=== PATIENT | female | born 1960 | race Caucasian/White ===

== ENCOUNTER 2018-08-25 11:41 | Emergency (ER) | payer OTHER ==
[~2018-08-25] VITALS: Ht 154.9 cm; Wt 57.7 kg
[2018-08-25] MEDS ORDERED: COLA100C5 PO (12:10)
[2018-08-25] MEDS ORDERED: ECOT81TA5 PO (12:10)
[2018-08-25] MEDS ORDERED: VITA-122 PO (12:10)
[2018-08-25] MEDS ORDERED: PRED20TA (12:10)
[2018-08-25] MEDS ORDERED: HYDR12CA (12:10)
[2018-08-25] MEDS ORDERED: HYDR-3713 (12:10)
[2018-08-25] MEDS ORDERED: SIMV10TA2 (12:10)
[2018-08-25] MEDS ORDERED: PYRI25TA2 PO (12:10)
[2018-08-25] MEDS ORDERED: B121000T PO (12:10)
[2018-08-25] MEDS ORDERED: MAGN250T9 PO (12:10)
[2018-08-25] MEDS ORDERED: POTA20TA6 (12:10)
[2018-08-25] MEDS ORDERED: ALLE180T33 PO (12:10)
[2018-08-25] MEDS ORDERED: BIOT2500 PO (12:10)
[2018-08-25] MEDS ORDERED: LORazepam 2 MG/ML VIAL (J2060) IV STA (12:26)
[2018-08-25] MEDS ORDERED: GABAPENTIN 300 MG CAP PO ONE (12:30)
[2018-08-25] MEDS ORDERED: MORPHINE 4 MG/ML 1ML VIAL/SYRINGE (J2270) IV ONE (12:30)
[2018-08-25 12:40] LABS: BASO % 0.4 % (0.0-1.0); EOS % 0.3 % (0.0-3.0); HEMATOCRIT 42.3 % (36.0-47.0); HEMOGLOBIN 14.6 g/dl (12.0-15.5); LYMPH # 1.1 10^3/uL (1.5-4.5); LYMPH % 13.3 % (24.0-44.0); MEAN CORPUSCULAR HEMOGLOBIN 31.3 pg (27.0-33.0); MEAN CORPUSCULAR HGB CONC 34.5 g/dl (32.0-36.5); MEAN CORPUSCULAR VOLUME 90.6 fl (80.0-96.0); MONO # 0.6 10^3/uL (0.0-0.8); MONO % 7.8 % (0.0-5.0); NEUTROPHILS # 6.2 10^3/uL (1.8-7.7); NEUTROPHILS % 77.8 % (36.0-66.0); PLATELET COUNT, AUTOMATED 246 10^3/uL (150-450); RED BLOOD COUNT 4.67 10^6/uL (4.00-5.40)
[2018-08-25] MEDS ORDERED: ONDANSETRON 4MG/2ML VIAL (J2405) IV ONE (13:00)
[2018-08-25] MEDS ORDERED: PERCOCET 5MG/325MG TAB PO ONE (13:00)
[2018-08-25] MEDS ORDERED: oxyCODONE 5MG TAB PO ONE (13:00)
[2018-08-25 13:02] LABS: ERYTHROCYTE SEDIMENTATION RATE 5 mm/hr (0-30)
[2018-08-25 13:05] LABS: BLOOD UREA NITROGEN 15 MG/DL (7-18); C REACTIVE PROTEIN QUANTITATIV < 0.30 MG/DL (0.00-0.30); CALCIUM LEVEL 9.1 MG/DL (8.5-10.1); CARBON DIOXIDE LEVEL 27 MEQ/L (21-32); CHLORIDE LEVEL 103 MEQ/L (98-107); CREATININE FOR GFR 0.61 MG/DL (0.55-1.30); GLOMERULAR FILTRATION RATE > 60.0 (>51); GLUCOSE, FASTING 98 MG/DL (70-100); POTASSIUM SERUM 3.8 MEQ/L (3.5-5.1); SODIUM LEVEL 139 MEQ/L (136-145)
--- NOTE | 2018-08-25 15:02 | REP ---
Emergency lumbar spine MRI study without contrast: History: Severe left lower back pain and left leg numbness. No comparison lumbar imaging. Technique: Sagittal and axial T1 and T2-weighted scans are acquired in the usual fashion with and without fat saturation. Sequences include spin echo, turbo spin-echo, and STIR imaging sequences. MRI findings: There is straightening of the normal lumbar lordosis. Lumbar vertebral body heights are preserved. Alignment is normal. There is no evidence of spondylolysis or spondylolisthesis. Conus medullaris is normal in position and appearance at the L1-2 disc level. No extra spinal abnormality is observed. Axial and sagittal images at the L1-2 and L2-3 disc show no abnormality. At L3-4, there is some decreased disc space height and signal intensity indicating degenerative disc disease. There is a fairly large left foraminal and left lateral disc protrusion. This produces left lateral neural foraminal impingement and displaces the adjacent extradural root. There is minimal ligamentum flavum hypertrophy. No central canal stenosis is seen. At the L4-5 level, there is degenerative narrowing of the disc. There is also a small left lateral disc protrusion at L4-5. In addition to the lateral disc extrusion, there is a left posterior and left foraminal disc herniation which is fairly large and compresses the left ventral margin of the thecal sac and the exiting left fifth root. This disc protrusion measures 11 mm in medial to lateral span by 5 mm in anteroposterior dimension by 12 mm in craniocaudal dimension. The disc is extruded cranially. There is mild facet hypertrophy bilaterally L4-5. At L5-S1, there is facet hypertrophy bilaterally. Minimal posterior disc bulging is seen diffusely. There is minimal neural foraminal narrowing on the right due to disc bulging. Impression: 1. Large left posterior disc protrusion at L4-5, with cranially extruded fragment producing thecal sac and left L5 root compression. 2. Small left lateral disc protrusion at L4-5.3. 3. Large left lateral disc protrusion at L3-4. Electronically Signed by Jony Muir MD 08/25/2018 03:54 P
[2018-08-25] MEDS ORDERED: GABA-843 PO (15:19)
[2018-08-25 15:30] VITALS: BP 137/84
--- NOTE | 2018-08-26 12:48 | ED PDOC ---
Post-Departure Follow-Up dr chambers and dr arboleda faxed formal report of mri ls spine for fu David Hinojosa MD Aug 26, 2018 12:48
== END 2018-08-25 15:34 | disposition home or self-care (01) ==
LOC: M ED 11:41
DX: M54.16 Radiculopathy, lumbar region (principal); M51.26 Other intervertebral disc displacement, lumbar region; I10 Essential (primary) hypertension; M54.30 Sciatica, unspecified side; Z79.899 Other long term (current) drug therapy; Z79.82 Long term (current) use of aspirin; Z88.0 Allergy status to penicillin; Z88.1 Allergy status to other antibiotic agents; Z88.2 Allergy status to sulfonamides; Z91.041 Radiographic dye allergy status
CPT/HCPCS: 72148; 80048; 85025; 85652; 86140; 94760; 96374; 96375; 99284; J2060; J2270; J2405

== ENCOUNTER 2018-08-27 14:29 | Day surgery (SDC) | payer OTHER ==
[~2018-08-27] VITALS: Ht 154.9 cm; Wt 55.3 kg
[~2018-08-27 14:29] MED LIST: ALLE180T33 PO; B121000T PO; BACITRACIN PWD 50,000 UNITS VIAL As Ordered ONE; BIOT2500 PO; BUPIVACAINE HCL 0.25% 10 ML VIAL As Ordered ONE; BUPIVACAINE LIPOSOME/PF 1.3% 20ML VIAL (13.3MG/ML)(EXPAREL)(C9290 PER1MG) As Ordered ONE; COLA100C5 PO; ECOT81TA5 PO; GABA-843 PO; HYDR-3713; HYDR12CA; MAGN250T9 PO; POTA20TA6; PRED20TA; PYRI25TA2 PO; SIMV10TA2; THROMBIN SOLN 20,000 UNITS KIT As Ordered ONE; VITA-122 PO
[2018-08-27] MEDS ORDERED: ONDANSETRON 4MG/2ML VIAL (J2405) As Ordered ONE (14:43)
[2018-08-27] MEDS ORDERED: KETAMINE HCL 200 MG/20 ML VIAL As Ordered ONE (14:43)
[2018-08-27] MEDS ORDERED: fentaNYL 250 MCG/5 ML INJECTION (J3010) As Ordered ONE (14:43)
[2018-08-27] MEDS ORDERED: PROPOFOL 200 MG/20 ML VIAL As Ordered ONE (14:43)
[2018-08-27] MEDS ORDERED: ROCURONIUM BROMIDE 50 MG/5 ML VIAL As Ordered ONE (14:43)
[2018-08-27] MEDS ORDERED: MIDAZOLAM INJ 2 MG/2 ML VIAL (J2250) As Ordered ONE (14:43)
[2018-08-27] MEDS ORDERED: LIDOCAINE 2% INJ 100 MG/5 ML SDV (FOR ANES.) As Ordered ONE (14:43)
[2018-08-27] MEDS ORDERED: ceFAZolin SOD 1 GM in D5W MINI-BAG PLUS 50 ML IV ONE (15:15)
[2018-08-27] MEDS ORDERED: LR 1,000 ML IV SCH ×2 (15:15→20:00)
[2018-08-27] MEDS ORDERED: PERCOCET 5MG/325MG TAB PO ONE (15:30)
[2018-08-27] MEDS ORDERED: GABAPENTIN 300 MG CAP PO ONE (15:30)
[2018-08-27] MEDS ORDERED: EPINEPHrine INJ 1 MG/ML 1ML AMP As Ordered ONE (16:20)
[2018-08-27] MEDS ORDERED: BUPIVACAINE/EPIN 0.5% 30 ML VIAL As Ordered ONE (16:20)
[2018-08-27] MEDS ORDERED: TRANEXAMIC ACID 100 MG/ML 10ML VIAL As Ordered ONE (16:20)
[2018-08-27] MEDS ORDERED: SCOPOLAMINE 1MG TRANSDERMAL PATCH As Ordered ONE (17:50)
[2018-08-27] MEDS ORDERED: dexameTHASONE 4 MG/ML 1ML VIAL (J1100) As Ordered ONE (18:29)
[2018-08-27] MEDS ORDERED: ePHEDrine SULFATE 25 MG/5 ML(5MG/ML) SYRINGE As Ordered ONE (18:52)
[2018-08-27] MEDS ORDERED: GLYCOPYRROLATE INJ 0.2 MG/ML 2 ML VIAL As Ordered ONE (19:28)
[2018-08-27] MEDS ORDERED: NEOSTIGMINE 10 MG/10 ML VIAL (J2710) As Ordered ONE (19:28)
[2018-08-27] MEDS ORDERED: ONDANSETRON 4MG/2ML VIAL (J2405) IV PRN (20:00)
[2018-08-27] MEDS ORDERED: METOCLOPRAMIDE INJ 10MG/2ML VIAL (J2765) IV PRN (20:00)
[2018-08-27] MEDS ORDERED: PERCOCET 5MG/325MG TAB PO PRN ×3 (20:00→20:15)
[2018-08-27] MEDS ORDERED: MEPERIDINE INJ 25 MG/ML VIAL (J2175) IV PRN (20:00)
[2018-08-27] MEDS ORDERED: fentaNYL 100 MCG/2 ML INJECTION (J3010) IV PRN (20:00)
[2018-08-27] MEDS ORDERED: SCOPOLAMINE 1MG TRANSDERMAL PATCH TOP SCH (20:15)
[2018-08-27] MEDS ORDERED: PROMETHAZINE 25 MG TAB PO PRN (20:15)
[2018-08-27] MEDS ORDERED: NORTRIPTYLINE 10 MG CAP PO PRN (20:15)
[2018-08-27] MEDS ORDERED: PILL CRUSHER/CUTTER 1 EACH XX PRN (20:15)
[2018-08-27 20:55] VITALS: BP 131/82
[2018-08-27] MEDS: GABAPENTIN 300 MG CAP PO SCH (21:20)
[2018-08-27] MEDS: D5W/LR 1,000 ML IV SCH (21:20)
[2018-08-27 21:25] VITALS: BP 138/82
[2018-08-27 22:00] VITALS: BP 134/86
[2018-08-27] MEDS ORDERED: HYDROmorphone HCL 2 MG/ML 1ML VIAL (J1170) IV PRN (22:00)
[2018-08-27 23:00] VITALS: BP 131/86
[2018-08-28] VITALS: BP 135/85
[2018-08-28] MEDS ORDERED: ceFAZolin SOD 1 GM in D5W MINI-BAG PLUS 50 ML IV SCH ×2
[2018-08-28 01:00] VITALS: BP 124/58
[2018-08-28 02:00] VITALS: BP 134/82
[2018-08-28 06:00] VITALS: BP 118/67
--- NOTE | 2018-08-28 06:06 | REP ---
CROSS-TABLE LUMBAR SPINE: 08/27/2018. Clinical history: Back injury. Findings: Single view with cross-table lateral projection intraoperative shows a probe at the level of the inferior articulating facet of L5. Wet reading was provided at the time of the exam for the OR. Electronically Signed by Silvestre Castelan MD 08/28/2018 08:54 A
[2018-08-28] MEDS: D5W/LR 1,000 ML IV SCH (06:15)
[2018-08-28] MEDS ORDERED: PERC5TAB12 PO (06:34)
[2018-08-28] MEDS: GABAPENTIN 300 MG CAP PO SCH (08:45)
[2018-08-28] MEDS ORDERED: POTASSIUM CHLORIDE 10 MEQ SR TABLET PO SCH (09:00)
[2018-08-28] MEDS ORDERED: ASPIRIN 81 MG ENTERIC TAB PO SCH (09:00)
[2018-08-28] MEDS ORDERED: hydroCHLOROthiazide 12.5 MG CAPSULE PO SCH (09:00)
[2018-08-28] MEDS ORDERED: METAMUCIL (PSYLLIUM) PACKET PO SCH (09:00)
--- NOTE | 2018-08-29 12:24 | RO ---
DATE OF PROCEDURE: 08/27/2018 PREOPERATIVE DIAGNOSIS: Left lower extremity radiculopathy secondary to disc extrusion L4-5 with superior migration. POSTOPERATIVE DIAGNOSIS: Left lower extremity radiculopathy secondary to disc extrusion L4-5 with superior migration. PROCEDURE PERFORMED: Left L4-5 microdiscectomy. SURGEON: Singh Painting MD ASSISTING: Jose G Lackey, physician botany laboratory assistant. ANESTHESIA: General. ESTIMATED BLOOD LOSS: Less than 30 mL, replaced with crystalloid. No complication. INDICATIONS: Left lower extremity radicular discomfort and weakness, intractable, going on for more than 1 week time. MRI evidence of large disc herniation with superior migration at L4-5 on the left side as well as some far lateral disc bulging. Patient has elected for operative intervention. CONSENT: Reviewed in detail with patient including beto discussion of the pathology involved, the procedure proposed, alternatives, including doing nothing, risks, including not limited to, pain, failure, infection, bleeding, blood loss, paralysis, nerve injury, need for more surgery, and other issues. Also talked about the potential need for fusion surgery if the far lateral disc also contributes symptoms. I did explain that we are addressing the extruded component which seemed to be having a larger mass affect. The patient agrees to proceed. DESCRIPTION OF PROCEDURE: Operative course: Identified in the holding area, site side verified, brought to the operating room. Once anesthesia was administered, Mr. Lackey and myself positioned the patient in the prone position on the Prince frame for exposure of the lumbar spine. Once I and the banquet stewardess were comfortable with the patient's positioning, she was sterilely prepped and draped in the usual fashion for exposure. Next, the incision was outlined with a marking pen. Length of the incision was about 1.5 cm, infiltrated with 0.25% Marcaine with epinephrine. It was based on palpation of the iliac crest and spinous processes. Next, the incision was made with a 10 blade knife, developed down through skin and subcuticular tissues. For this portion of procedure, I utilized loupe magnification and a headlamp. Dissection continued down to the L4-5 interspace, identified the posterior lamina of L5. I drilled the divot in the posterior lamina of L5 with the high-speed bur and placed a Burks Christiano in the divot. We now obtained a cross-table lateral x-ray to verify our level. Next, with this accomplished, we continued the dissection further exposing the L4-5 level over the lamina of 4 and facet complex of 4-5. Next, because of the patient's small stature and the small incision, I did utilize the cervical Versatrac retractor for this lumbar case, size 40 mm thin blade. Next, at this stage, the operating microscope was draped and brought in for the remainder of the procedure, my loupes were removed, headlamp removed. Next, this facilitated safe use of the high-speed bur. Mr. Lackey looked through oculars on the right side of the scope, I through oculars on the left side of the scope. I utilized the high-speed bur to implement the left unilateral laminotomy at the L4 level extending superiorly to the bare area of L4 and then inferiorly into the lamina of L5 to the bare area of 5. The medial aspect of the facet was preserved. We removed probably 4 mm of the medial aspect of thel L4-5 facet in the process of this dissection. Next, ligamentum flavum was elevated with curved curettes and removed ligamentum flavum using #2 Kerrison. Next, this exposed the thecal sac. Next, the superior aspect of the dissection, we utilized a Burks Christiano and Mr. Lackey utilized suction Edin retractor to retract the thecal sac, and I appreciated the superiorly migrated disc fragment. I utilized a Burks Christiano to tease it from under the posterior longitudinal ligament and the Cason pituitary to remove it from the posterior longitudinal ligament. The fragment up was nearly 1 cm x 1 cm x 1 cm in dimension, clinically intraoperatively. Next, is quite significantly decompressed the thecal sac. I did probe the neural foramina and I found no impingement in neural foramina or in probing with Burks Christiano probe. Next, bipolar cautery was visualized for hemostasis as well as thrombin Gelfoam. All thrombin Gelfoam was removed at the conclusion of case. We appreciated no active bleeding and no cerebrospinal fluid (CSF) leak. Next, I did inject Exparel solution, approximately 40 mL, for postoperative local anesthetic into the subcuticular tissues and fascial tissues. Next, once all retractors were removed, we reapproximated the lumbar fascia with interrupted stitch, deep dermis with interrupted stitch. Prineo dressing utilized on skin. Patient was log rolled to hospital bed, extubated, moved to recovery room in good condition. For further details, please refer to the medical record.
== END 2018-08-28 09:35 | disposition home or self-care (01) ==
LOC: M SDC 14:29 → M MS5PR 20:45 → M SDC 08-28 09:35
PROVIDERS: ATTEND Orthopaedic Surgery
DX: M51.16 Intervertebral disc disorders with radiculopathy, lumbar region (principal); M51.26 Other intervertebral disc displacement, lumbar region; I10 Essential (primary) hypertension; Z79.82 Long term (current) use of aspirin; Z79.899 Other long term (current) drug therapy; Z88.0 Allergy status to penicillin; Z88.2 Allergy status to sulfonamides; Z91.041 Radiographic dye allergy status
CPT/HCPCS: 36415; 63030; 72110; 86850; 86900; 86901; 88304; 96374; 96375; C9290; J0690; J1100; J1170; J2250; J2405; J2710; J3010

== ENCOUNTER 2019-07-06 09:51 | Emergency (ER) | payer OTHER ==
[~2019-07-06] VITALS: Ht 154.9 cm; Wt 57.3 kg
[~2019-07-06 09:51] MED LIST changes: -BACITRACIN PWD 50,000 UNITS VIAL As Ordered ONE; -BUPIVACAINE HCL 0.25% 10 ML VIAL As Ordered ONE; -BUPIVACAINE LIPOSOME/PF 1.3% 20ML VIAL (13.3MG/ML)(EXPAREL)(C9290 PER1MG) As Ordered ONE; +PERC5TAB12 PO; -SIMV10TA2; +SIMV10TA21; -THROMBIN SOLN 20,000 UNITS KIT As Ordered ONE
--- NOTE | 2019-07-06 10:48 | REP ---
REASON: Pain, no trauma. NO PRIORS. FINDINGS: No acute fracture or destructive osseous lesion. Electronically Signed by Chuck Alva DO 07/06/2019 11:43 A
--- NOTE | 2019-07-06 10:50 | REP ---
REASON: Pain. No trauma. AP PELVIS AND TWO VIEWS OF THE LEFT HIP: A single AP view of the pelvis was performed. The hip joint spaces are symmetric and relatively well maintained. There is no acute fracture or destructive osseous lesion. LEFT HIP: The hip joint space is symmetric and relatively well maintained. There is no acute or destructive osseous lesion. Electronically Signed by Chuck Alva DO 07/06/2019 11:43 A
[2019-07-06] MEDS ORDERED: IBUPROFEN 600 MG TAB PO ONE (14:00)
[2019-07-06] MEDS ORDERED: ACETAMINOPHEN 500 MG TAB PO ONE (14:00)
[2019-07-06] MEDS ORDERED: NAPR220C14 PO (14:29)
[2019-07-06] MEDS ORDERED: LISI-1046 PO (14:29)
--- NOTE | 2019-07-06 14:36 | REP ---
Reason for the left hip is felt a pop. The hip is normal. There is no evidence of a mass or significant joint effusion. IMPRESSION: Normal hip CT. Electronically Signed by Chuck Alva DO 07/06/2019 03:09 P
[2019-07-06 14:39] LABS: BASO % 0.4 % (0.0-1.0); EOS # 0.1 10^3/uL (0.0-0.5); EOS % 1.3 % (0.0-3.0); HEMATOCRIT 40.5 % (36.0-47.0); HEMOGLOBIN 13.4 g/dl (12.0-15.5); LYMPH % 20.5 % (24.0-44.0); MEAN CORPUSCULAR HEMOGLOBIN 31.3 pg (27.0-33.0); MEAN CORPUSCULAR HGB CONC 33.1 g/dl (32.0-36.5); MEAN CORPUSCULAR VOLUME 94.6 fl (80.0-96.0); MONO # 0.9 10^3/uL (0.0-0.8); MONO % 9.1 % (0.0-5.0); NEUTROPHILS # 6.6 10^3/uL (1.5-8.5); NEUTROPHILS % 68.4 % (36.0-66.0); PLATELET COUNT, AUTOMATED 219 10^3/uL (150-450); RED BLOOD COUNT 4.28 10^6/uL (4.00-5.40); WHITE BLOOD COUNT 9.6 10^3/uL (4.0-10.0)
[2019-07-06 14:44] VITALS: BP 130/70
[2019-07-06 15:02] LABS: ERYTHROCYTE SEDIMENTATION RATE 6 mm/hr (0-30)
== END 2019-07-06 15:20 | disposition home or self-care (01) ==
LOC: M ED 09:51
DX: S76.012A Strain of muscle, fascia and tendon of left hip, initial encounter (principal); X58.XXXA Exposure to other specified factors, initial encounter; Y92.89 Other specified places as the place of occurrence of the external cause; I10 Essential (primary) hypertension; E78.5 Hyperlipidemia, unspecified; Z79.899 Other long term (current) drug therapy; Z79.82 Long term (current) use of aspirin; Z88.0 Allergy status to penicillin; Z88.1 Allergy status to other antibiotic agents; Z88.2 Allergy status to sulfonamides; Z91.041 Radiographic dye allergy status

== ENCOUNTER → 2024-12-25 | Outpatient (REF) | payer BC ==
[~2024-12-25] MED LIST changes: +GABA-1172 PO; -GABA-843 PO; +LISI2.5T9 PO; +NAPR220C14 PO; +POTA-151; -POTA20TA6
[2024-12-25 17:39] LABS: APPEARANCE, URINE CLEAR (CLEAR); BACTERIA, URINE AUTO NEGATIVE (NEGATIVE); BILIRUBIN, URINE AUTO NEGATIVE (NEGATIVE); BLOOD, URINE BLOOD NEGATIVE (NEGATIVE); COLOR, URINE YELLOW (YELLOW); GLUCOSE, URINE (UA) AUTO NEGATIVE (NEGATIVE); KETONE, URINE AUTO NEGATIVE (NEGATIVE); LEUKOCYTE ESTERASE, URINE AUTO NEGATIVE (NEGATIVE); NITRITE, URINE AUTO NEGATIVE (NEGATIVE); PROTEIN, URINE AUTO NEGATIVE (NEGATIVE); RBC, URINE AUTO 0 /HPF (0-3); SQUAMOUS EPITHELIAL CELL UR AU 0 /HPF (0-6); UROBILINOGEN, URINE AUTO 0.2 mg/dL (0.0-2.0); WBC, URINE AUTO 1 /HPF (0-3)
== END ==
LOC: M LAB REF 17:07
PROVIDERS: ATTEND Specialist
DX: N39.41 Urge incontinence (principal)